=== PATIENT | male | born 1995 | race African-American/Black ===

== ENCOUNTER 2021-12-12 17:33 | Emergency (ER) | payer SELFPAY ==
[~2021-12-12] VITALS: Ht 182.9 cm; Wt 95.7 kg
[2021-12-12 17:42] VITALS: BP 156/93
== END 2021-12-12 21:56 | disposition left against medical advice (07) ==
LOC: ER 17:57
DX: M54.9 Dorsalgia, unspecified (principal); F17.210 Nicotine dependence, cigarettes, uncomplicated; Z59.00 Homelessness unspecified; Z53.29 Procedure and treatment not carried out because of patient's decision for other reasons